=== PATIENT | male | born 2000 | race Caucasian/White ===

== ENCOUNTER 2021-07-12 19:41 | Emergency (ER) | payer OTHER ==
[~2021-07-12] VITALS: Ht 170.2 cm; Wt 63.5 kg
[2021-07-12 21:07] VITALS: BP 122/74
== END 2021-07-12 21:07 | disposition home or self-care (01) ==
LOC: M.ERS 19:41
DX: M25.532 Pain in left wrist (principal); L53.9 Erythematous condition, unspecified; Z88.0 Allergy status to penicillin; V86.59XA Driver of other special all-terrain or other off-road motor vehicle injured in nontraffic accident, initial encounter; Y93.89 Activity, other specified; Y92.488 Other paved roadways as the place of occurrence of the external cause; Y99.8 Other external cause status